=== PATIENT | male | born 1975 | race Caucasian/White ===

== ENCOUNTER → 2016-05-08 | Outpatient (CLI) | payer OTHER ==
[2016-05-08 18:05] LABS: ALT/SGPT 24 U/L (12-78); BLOOD UREA NITROGEN 10 mg/dl (7-18); BUN/CREATININE RATIO 10.3 (10-20); CALCIUM 8.8 mg/dl (8.5-10.1); CARBON DIOXIDE 26 mmol/L (21-32); CHLORIDE 104 mmol/L (98-107); CHOLESTEROL 186 mg/dl (0-200); CREATININE 0.99 mg/dl (0.60-1.40); GLUCOSE 82 mg/dl (70-99); POTASSIUM 4.1 mmol/L (3.5-5.1); SODIUM 140 mmol/L (136-145); TRIGLYCERIDES 121 mg/dl (0-150); VERY LOW DENSITY LIPOPROT CALC 24 mg/dl
[2016-05-08 18:15] LABS: ALKALINE PHOSPHATASE 119 U/L (45-117); AST/SGOT 13 U/L (15-37); CHOLESTEROL/HDL RATIO 3.2; HDL CHOLESTEROL 59 mg/dl; LDL CHOLESTEROL CALCULATED 103 mg/dl; THYROID STIMULATING HORMONE 0.917 uIu/ml (0.300-4.500)
== END | disposition home or self-care (01) ==
LOC: C.LABPBG 14:34
PROVIDERS: ATTEND Neuromusculoskeletal Medicine & OMM
DX: Z00.00 Encounter for general adult medical examination without abnormal findings (principal); E66.9 Obesity, unspecified

== ENCOUNTER → 2016-06-07 | Outpatient (CLI) | payer OTHER | END | disposition home or self-care (01) | LOC: C.LABPBG 14:14 | PROVIDERS: ATTEND Neuromusculoskeletal Medicine & OMM | DX: R53.83 Other fatigue (principal) ==

== ENCOUNTER → 2016-12-10 | Outpatient (CLI) | payer OTHER | END | disposition home or self-care (01) | LOC: C.LABPBG 14:43 | PROVIDERS: ATTEND Physician Assistant | DX: R60.9 Edema, unspecified (principal) ==

== ENCOUNTER → 2016-12-10 | Outpatient (CLI) | payer OTHER ==
--- NOTE | 2016-12-10 14:08 | DIAGNOSTIC IMAGING REPORT ---
ULTRASOUND LEFT VENOUS DOPP LOWER EXT UNILAT CLINICAL HISTORY: R60.9 Peripheral edemaleft lower [id number] COMPARISON STUDY: No previous studies for comparison. FINDINGS: Real-time and color flow Doppler imaging were performed. Flow was seen within the femoral, popliteal and calf veins with no intraluminal thrombus demonstrated. The saphenous vein is patent. There is a small complex popliteal fossa and calf collection likely representing a popliteal cyst which has dissected into the calf. This extends over a length of 7 cm. IMPRESSION: No evidence of left lower extremity DVT. Electronically signed by: George Jackson M.D. 12/10/2016 2:07 PM Dictated Date/Time: 12/10/2016 2:05 PM
== END | disposition home or self-care (01) ==
LOC: C.ULTR 13:13
PROVIDERS: ATTEND Physician Assistant
DX: R60.9 Edema, unspecified (principal)

== ENCOUNTER → 2016-12-17 | Outpatient (CLI) | payer OTHER ==
[2016-12-17 12:17] LABS: BLOOD UREA NITROGEN 20 mg/dl (7-18); BUN/CREATININE RATIO 26.3 (10-20); CALCIUM 8.7 mg/dl (8.5-10.1); CARBON DIOXIDE 28 mmol/L (21-32); CHLORIDE 106 mmol/L (98-107); CREATININE 0.78 mg/dl (0.60-1.40); GLUCOSE 96 mg/dl (70-99); POTASSIUM 3.9 mmol/L (3.5-5.1); SODIUM 140 mmol/L (136-145)
== END | disposition home or self-care (01) ==
LOC: C.LABPBG 08:01
PROVIDERS: ATTEND Physician Assistant
DX: I10 Essential (primary) hypertension (principal)

== ENCOUNTER → 2017-07-15 | Outpatient (CLI) | payer OTHER ==
[2017-07-15 14:03] LABS: ALBUMIN 3.7 gm/dl (3.4-5.0); ALT/SGPT 31 U/L (12-78); AST/SGOT 15 U/L (15-37); BLOOD UREA NITROGEN 17 mg/dl (7-18); CALCIUM 8.7 mg/dl (8.5-10.1); CARBON DIOXIDE 27 mmol/L (21-32); CHOLESTEROL 178 mg/dl (0-200); CREATININE 0.84 mg/dl (0.60-1.40); GLUCOSE 100 mg/dl (70-99); POTASSIUM 4.1 mmol/L (3.5-5.1); SODIUM 139 mmol/L (136-145)
[2017-07-15 14:06] LABS: ALKALINE PHOSPHATASE 94 U/L (45-117); LDL CHOLESTEROL CALCULATED 107 mg/dl; TOTAL PROTEIN 7.1 gm/dl (6.4-8.2)
== END | disposition home or self-care (01) ==
LOC: C.LABPBG 08:29
PROVIDERS: ATTEND Family Medicine
DX: Z13.220 Encounter for screening for lipoid disorders (principal); F10.10 Alcohol abuse, uncomplicated; I10 Essential (primary) hypertension

== ENCOUNTER → 2017-11-13 | Outpatient (CLI) | payer OTHER ==
[2017-11-13 13:30] LABS: BLOOD UREA NITROGEN 12 mg/dl (7-18); CALCIUM 8.9 mg/dl (8.5-10.1); CARBON DIOXIDE 27 mmol/L (21-32); CREATININE 0.96 mg/dl (0.60-1.40); GLUCOSE 117 mg/dl (70-99); SODIUM 139 mmol/L (136-145)
== END | disposition home or self-care (01) ==
LOC: C.LABPBG 07:29
PROVIDERS: ATTEND Family Medicine
DX: I10 Essential (primary) hypertension (principal); I87.2 Venous insufficiency (chronic) (peripheral)